=== PATIENT | male | born 1945 | race Caucasian/White ===

== ENCOUNTER 2024-07-30 14:13 | Emergency (ER) | payer OTHER, MEDICARE ==
[~2024-07-30] VITALS: Ht 172.7 cm; Wt 104.8 kg
[2024-07-30] MEDS ORDERED: LIPITOR20 MG PO (14:29)
[2024-07-30] MEDS ORDERED: ATENOLOL25 MG PO (14:29)
[2024-07-30] MEDS ORDERED: CITALOPRAM HBR20 MG PO (14:30)
[2024-07-30] MEDS ORDERED: TRAZODONE HCL100 MG PO (14:30)
[2024-07-30] MEDS ORDERED: COZAAR25 MG PO (14:32)
[2024-07-30] MEDS ORDERED: AMLODIPINE-OLM1 EAC1 PO (14:32)
[2024-07-30] MEDS ORDERED: ASPIRIN81 MG PO (15:02)
[2024-07-30] MEDS ORDERED: MAGNEBIND 3001 EACH PO (15:04)
[2024-07-30] MEDS ORDERED: PRILOSEC OTC20 MG PO (15:04)
[2024-07-30] MEDS ORDERED: VIT D3-VIT K21 EACH PO (15:06)
[2024-07-30 15:16] LABS: BASOPHILS 0.5 % (0-2); EOSINOPHILS 1.1 % (0-6); HEMATOCRIT 43.8 % (35.0-50.0); MCH 31.3 (27-36); MCHC 34.3 g/dl (30-36); MCV 91.2 fl (81-99); MONOCYTES 5.2 % (0-12); NEUTROPHILS 76.2 % (39-80); PLATELET COUNT 274 K/uL (140-440); RDW 13.1 (10.5-15.0)
[2024-07-30 15:23] LABS: ALBUMIN 3.8 g/dL (3.4-5.0); ALBUMIN/GLOBULIN RATIO 1.15 (1.1-2.4); ANION GAP 14.7 (7-21); BILIRUBIN, TOTAL 0.4 mg/dL (0.2-1.0); BUN/CREATININE RATIO 22.35 (6.0-28.6); CALCIUM 9.4 mg/dL (8.5-10.1); CREATININE, SERUM 0.85 mg/dL (0.70-1.30); POTASSIUM 3.7 mmol/L (3.5-5.1); PROTEIN, TOTAL 7.1 g/dL (6.4-8.2)
[2024-07-30] MEDS ORDERED: DIPHTH,PERTUSS(ACELL),TET VAC 0.5 ML SYRINGE IM ONE (15:30)
[2024-07-30] MEDS ORDERED: LIDOCAINE/RACEPINEP/TETRACAINE 3 ML SYR TOP ONE (16:15)
--- OUTSIDE RECORDS SUMMARY | 2024-07-30 16:57 | XMS ---
PreManage Notification: ISABELLE MANCUSO [employer] [facility] Internship Events No recent Security Events currently on file CRITERIA MET - [facility] - 2 Visits in 30 Days CARE PROVIDERS [employer] Physician Feeder Operator Current PHONE: [phone] NILTON VARGAS Current PHONE: Unknown Sundeep has no Care Guidelines for this patient. Henrry VISIT COUNT (12 MO.) [address] [place] [address] Roselyn Phelps (Surekha Irby) TOTAL 2 NOTE: Visits indicate total known visits. ED/UCC VISIT TRACKING (12 MO.) 07/30/2024 14:15 [facility] TYPE: Emergency COMPLAINT: - [facility] DIAGNOSES: - head injury INPATIENT VISIT TRACKING (12 MO.) No inpatient visits to display in this time frame [id number]
[2024-07-30 17:06] VITALS: BP 183/83
--- NOTE | 2024-07-30 19:34 | EKG ---
[facility] [address] [facility] [place] [address] Signed Sinus bradycardia Otherwise normal ECG No previous ECGs available Confirmed by Rafaela Reynolds MD ([id number]) on 07/30/2024 7:34:10 PM Electronically Signed By: RAFAELA REYNOLDS MD 07/30/241933 PATIENT NAME: ISABELLE MANCUSO Electrocardiogram DATE OF : 49 PHYSICIAN: RAFAELA REYNOLDS MD REPORT #: [id number] REPORT IS CONFIDENTIAL AND NOT TO BE RELEASED WITHOUT AUTHORIZATION
== END 2024-07-30 17:15 | disposition home or self-care (01) ==
LOC: ED 14:13
PROVIDERS: Emergency Medicine
DX: S01.01XA Laceration without foreign body of scalp, initial encounter (principal); S70.01XA Contusion of right hip, initial encounter; W00.0XXA Fall on same level due to ice and snow, initial encounter; I11.0 Hypertensive heart disease with heart failure; I50.9 Heart failure, unspecified; Z88.8 Allergy status to other drugs, medicaments and biological substances; Z79.899 Other long term (current) drug therapy
CPT/HCPCS: 12002; 36415; 70450; 72125; 73502; 80053; 85025; 90471; 90715; 93005; 93010; 99284-25